=== PATIENT | female | born 1940 | race Caucasian/White ===

== ENCOUNTER 2016-05-04 17:35 | Inpatient (IN) | payer MEDICARE ==
[~2016-05-04] VITALS: Ht 160 cm; Wt 61.2 kg
[2016-05-04 21:36] VITALS: BP_SYST 133; RESP 20; TEMP 98.1
[2016-05-04 21:38] VITALS: Ht 160 cm; Wt 61.2 kg
[2016-05-04] MEDS ORDERED: SALINE FLUSH 10 ML FLUSH PRN (21:40)
[2016-05-04] MEDS ORDERED: ONDANSETRON 4 MG VIAL IV PRN (21:40)
[2016-05-04] MEDS ORDERED: PHARMACY TO DOSE VANCOMYCIN IV SCH (22:25)
[2016-05-04] MEDS ORDERED: SODIUM CHLORIDE 0.9% 1,000 ML IV SCH (22:30)
[2016-05-04] MEDS ORDERED: VANCOMYCIN 1,250 MG in SODIUM CHLORIDE 0.9% 250 ML IV ONE (22:40)
[2016-05-05] VITALS (9 sets, daily range): BP systolic 99–132; RESP 16–20; TEMP 97.2–98.1
[2016-05-05] MEDS: PIPERACIL/TAZO 3.375GM/50ML 50 ML IV SCH ×3 (00:55→11:04)
[2016-05-05] MEDS: METHYLPRED SOD SUCC 40 MG VIAL IV SCH ×3 (00:56→16:04)
[2016-05-05] MEDS: SODIUM CHLORIDE 0.9% FLUSH BAG 500 ML IV SCH (02:49)
[2016-05-05] MEDS: NEB-ATROVENT INH SCH ×6 (04:02→23:49)
[2016-05-05] MEDS: NEB-ALBUTEROL 2.5 MG/3 ML INH SCH ×6 (04:02→23:49)
[2016-05-05] MEDS: ASPIRIN 81 MG CHEW TAB PO SCH (08:32)
[2016-05-05] MEDS: ISOSORBIDE MONO 60 MG TAB PO SCH (08:32)
[2016-05-05] MEDS: APIXABAN 5 MG TAB PO SCH ×2 (08:32→20:47)
[2016-05-05] MEDS: GABAPENTIN 100 MG CAP PO SCH ×3 (08:33→20:47)
[2016-05-05] MEDS: SALINE FLUSH 10 ML FLUSH SCH ×2 (08:33→20:46)
[2016-05-05] MEDS: NORTRIPTYLINE 10 MG CAP PO SCH ×2 (08:33→20:47)
[2016-05-05] MEDS ORDERED: ENOXAPARIN 40 MG/0.4 ML SYR SUBQ SCH (09:00)
[2016-05-05] MEDS ORDERED: ACETAMINOPHEN 500 MG TAB PO PRN (10:30)
[2016-05-05] MEDS ORDERED: SODIUM CHLORIDE 0.9% 1,000 ML IV SCH (10:35)
[2016-05-05] MEDS: OXYCODONE 5 MG TAB PO PRN ×3 (11:06→23:02)
[2016-05-05] MEDS: DIGOXIN 0.125 MG TAB PO SCH (11:08)
[2016-05-05] MEDS ORDERED: PHARMACY TO DOSE CEFEPIME IV SCH (12:40)
[2016-05-05] MEDS: CEFEPIME 2000 MG/100 ML D5W 100 ML IV SCH ×2 (13:23→20:46)
[2016-05-05] MEDS: TOBRAMYCIN 300 MG INH SCH (17:05)
[2016-05-05] MEDS: NEB-BROVANA 15 MCG/2 ML INH SCH (17:05)
[2016-05-05] MEDS: NEB-NACL 3% 4 ML NEBU INH SCH ×2 (17:09→23:49)
[2016-05-05] MEDS: NEB-BUDESONIDE 0.5 MG INH SCH (17:09)
[2016-05-05] MEDS ORDERED: TOBRAMYCIN 300 MG INH SCH (19:00)
[2016-05-05] MEDS ORDERED: VANCOMYCIN 1,250 MG in SODIUM CHLORIDE 0.9% 250 ML IV SCH (23:00)
[2016-05-06] VITALS (10 sets, daily range): BP systolic 108–144; RESP 18–24; TEMP 97.3–98.2
[2016-05-06] MEDS: METHYLPRED SOD SUCC 40 MG VIAL IV SCH ×3 (00:12→15:25)
[2016-05-06] MEDS: SODIUM CHLORIDE 0.9% FLUSH BAG 500 ML IV SCH (06:00)
[2016-05-06] MEDS: NEB-NACL 3% 4 ML NEBU INH SCH ×4 (06:30→23:12)
[2016-05-06] MEDS: NEB-ATROVENT INH SCH ×2 (07:52→11:20)
[2016-05-06] MEDS: NEB-ALBUTEROL 2.5 MG/3 ML INH SCH ×5 (07:52→23:12)
[2016-05-06] MEDS: TOBRAMYCIN 300 MG INH SCH ×3 (07:53→18:45)
[2016-05-06] MEDS: NEB-BUDESONIDE 0.5 MG INH SCH (07:53)
[2016-05-06] MEDS: NEB-BROVANA 15 MCG/2 ML INH SCH ×2 (07:53→18:45)
[2016-05-06] MEDS: CEFEPIME 2000 MG/100 ML D5W 100 ML IV SCH ×2 (08:38→20:18)
[2016-05-06] MEDS: SALINE FLUSH 10 ML FLUSH SCH ×2 (08:38→20:18)
[2016-05-06] MEDS: ASPIRIN 81 MG CHEW TAB PO SCH (08:39)
[2016-05-06] MEDS: GABAPENTIN 100 MG CAP PO SCH ×3 (08:39→20:18)
[2016-05-06] MEDS: APIXABAN 5 MG TAB PO SCH ×2 (08:39→20:18)
[2016-05-06] MEDS: NORTRIPTYLINE 10 MG CAP PO SCH ×2 (08:39→20:18)
[2016-05-06] MEDS: ISOSORBIDE MONO 60 MG TAB PO SCH (08:39)
[2016-05-06] MEDS: DIGOXIN 0.125 MG TAB PO SCH (12:40)
[2016-05-07] VITALS (13 sets, daily range): BP systolic 131–152; RESP 16–20; TEMP 97.3–97.8
[2016-05-07] MEDS: SODIUM CHLORIDE 0.9% FLUSH BAG 500 ML IV SCH (05:37)
[2016-05-07] MEDS: TOBRAMYCIN 300 MG INH SCH ×2 (06:33→19:48)
[2016-05-07] MEDS: NEB-ALBUTEROL 2.5 MG/3 ML INH SCH ×5 (06:33→23:13)
[2016-05-07] MEDS: NEB-NACL 3% 4 ML NEBU INH SCH ×4 (06:34→23:13)
[2016-05-07] MEDS: NEB-BROVANA 15 MCG/2 ML INH SCH ×2 (06:34→19:48)
[2016-05-07] MEDS: NEB-NACL 3% 4 ML NEBU INH ONE ×2 (06:34→06:38)
[2016-05-07] MEDS: SALINE FLUSH 10 ML FLUSH SCH ×2 (08:27→20:44)
[2016-05-07] MEDS: ISOSORBIDE MONO 60 MG TAB PO SCH (08:27)
[2016-05-07] MEDS: CEFEPIME 2000 MG/100 ML D5W 100 ML IV SCH ×2 (08:27→20:43)
[2016-05-07] MEDS: METHYLPRED SOD SUCC 40 MG VIAL IV SCH ×4 (08:28→23:19)
[2016-05-07] MEDS: ASPIRIN 81 MG CHEW TAB PO SCH (08:28)
[2016-05-07] MEDS: GABAPENTIN 100 MG CAP PO SCH ×3 (08:28→20:43)
[2016-05-07] MEDS: APIXABAN 5 MG TAB PO SCH ×2 (08:28→20:43)
[2016-05-07] MEDS: NORTRIPTYLINE 10 MG CAP PO SCH ×2 (08:28→20:43)
[2016-05-07] MEDS: DIGOXIN 0.125 MG TAB PO SCH (12:18)
[2016-05-07] MEDS ORDERED: Furosemide 20 MG/2 ML VIAL IV ONE (12:55)
[2016-05-07] MEDS ORDERED: DEXTROSE 50% SYRINGE 50 ML IV PRN (13:10)
[2016-05-07] MEDS ORDERED: GLUCAGON 1 MG VIAL IM PRN (13:10)
[2016-05-07] MEDS ORDERED: DOCUSATE SOD 100 MG CAP PO PRN (15:15)
[2016-05-07] MEDS ORDERED: BISACODYL 10 MG SUPP RECTAL PRN (15:15)
[2016-05-07] MEDS ORDERED: BISACODYL EC 5 MG TAB PO PRN (15:15)
[2016-05-07] MEDS ORDERED: OXYCODONE 5 MG TAB PO PRN (16:22)
[2016-05-07] MEDS ORDERED: MISSING DOSE XX ONE (18:15)
[2016-05-08 03:32] VITALS: BP_SYST 149; TEMP 97.4
[2016-05-08 03:34] VITALS: RESP 20
[2016-05-08] MEDS: SODIUM CHLORIDE 0.9% FLUSH BAG 500 ML IV SCH (05:33)
[2016-05-08] MEDS: NEB-BROVANA 15 MCG/2 ML INH SCH (07:17)
[2016-05-08] MEDS: TOBRAMYCIN 300 MG INH SCH (07:17)
[2016-05-08] MEDS: NEB-ALBUTEROL 2.5 MG/3 ML INH SCH ×3 (07:17→15:17)
[2016-05-08] MEDS: NEB-NACL 3% 4 ML NEBU INH SCH ×2 (07:17→10:32)
[2016-05-08 07:26] VITALS: BP_SYST 155; RESP 20; TEMP 97.5
[2016-05-08] MEDS: APIXABAN 5 MG TAB PO SCH (10:01)
[2016-05-08] MEDS: ISOSORBIDE MONO 60 MG TAB PO SCH (10:01)
[2016-05-08] MEDS: NORTRIPTYLINE 10 MG CAP PO SCH (10:01)
[2016-05-08] MEDS: GABAPENTIN 100 MG CAP PO SCH ×2 (10:01→17:17)
[2016-05-08] MEDS: ASPIRIN 81 MG CHEW TAB PO SCH (10:01)
[2016-05-08] MEDS: SALINE FLUSH 10 ML FLUSH SCH (10:14)
[2016-05-08] MEDS: CEFEPIME 2000 MG/100 ML D5W 100 ML IV SCH (10:15)
[2016-05-08 11:03] VITALS: BP_SYST 145; RESP 18; TEMP 98.2
[2016-05-08] MEDS ORDERED: Furosemide 20 MG/2 ML VIAL IV ONE (11:40)
[2016-05-08] MEDS ORDERED: VALACYCLOVIR 500 MG TAB PO SCH ×2 (11:46→16:00)
[2016-05-08] MEDS ORDERED: CYANOCOBA 500 MCG TAB PO SCH (11:46)
[2016-05-08] MEDS: DIGOXIN 0.125 MG TAB PO SCH (11:58)
[2016-05-08] MEDS ORDERED: METHYLPRED SOD SUCC 125 MG/2 ML VIAL IV SCH (16:00)
[2016-05-08 16:35] VITALS: BP_SYST 132; RESP 20
[2016-05-08 17:30] VITALS: BP_SYST 132; RESP 20; TEMP 98.2
== END 2016-05-08 18:18 | DRG 189 ==
LOC: ENPENDDIS 21:16 → 3NT 21:16
PROVIDERS: ADMIT Internal Medicine; ATTEND Internal Medicine
DX: J96.21 Acute and chronic respiratory failure with hypoxia (principal); J47.1 Bronchiectasis with (acute) exacerbation; I50.32 Chronic diastolic (congestive) heart failure; E78.5 Hyperlipidemia, unspecified; B02.9 Zoster without complications; Z86.711 Personal history of pulmonary embolism; Z79.01 Long term (current) use of anticoagulants; Z99.81 Dependence on supplemental oxygen; Z95.0 Presence of cardiac pacemaker
CPT/HCPCS: 71020; 80048; 80053; 80162; 82607; 82746; 82947; 83036; 83735; 83880; 84484; 85025; 87040; 87278; 87299; 94640; 94667; 94668; 94799; 99223; 99232; 99233; 99239

== ENCOUNTER 2016-05-08 12:18 | Inpatient (IN) | payer MEDICARE ==
[~2016-05-08] VITALS: Ht 160 cm; Wt 66.1 kg
[2016-05-08] MEDS ORDERED: GLUCAGON 1 MG VIAL IM PRN (14:50)
[2016-05-08] MEDS ORDERED: PHARMACY TO DOSE CEFEPIME IV SCH (14:50)
[2016-05-08] MEDS ORDERED: POLYETHYLENE GLYCOL 17 GM PACKET PO PRN (14:50)
[2016-05-08] MEDS ORDERED: ACETAMINOPHEN 325 MG TAB PO PRN (14:50)
[2016-05-08] MEDS ORDERED: PNEUMO VAC 25 MCG/0.5 ML VL IM.VACC ONE (14:50)
[2016-05-08] MEDS ORDERED: DEXTROSE 50% SYRINGE 50 ML IV PRN (14:50)
[2016-05-08] MEDS: METHYLPRED SOD SUCC 40 MG VIAL IV SCH (16:00)
[2016-05-08] MEDS: VALACYCLOVIR 500 MG TAB PO SCH (16:00)
[2016-05-08] MEDS: GABAPENTIN 100 MG CAP PO SCH ×2 (16:00→22:32)
[2016-05-08] MEDS: NEB-NACL 3% 4 ML NEBU INH SCH ×2 (18:30→21:46)
[2016-05-08] MEDS: NEB-ALBUTEROL 2.5 MG/3 ML INH SCH ×2 (19:00→21:45)
[2016-05-08] MEDS ORDERED: TUBERCULIN PPD 5 UNIT SYR ID.VACC ONE (21:00)
[2016-05-08 21:46] VITALS: RESP 18
[2016-05-08] MEDS: TOBRAMYCIN 300 MG INH SCH (21:47)
[2016-05-08] MEDS: CEFEPIME 2000 MG/100 ML D5W 100 ML IV SCH (22:31)
[2016-05-08] MEDS: NORTRIPTYLINE 10 MG CAP PO SCH (22:31)
[2016-05-08] MEDS: APIXABAN 2.5 MG TAB PO SCH (22:32)
[2016-05-08 23:20] VITALS: BP_SYST 140; RESP 18; TEMP 97.3
[2016-05-09] VITALS: BMI 26.0
[2016-05-09] MEDS: VALACYCLOVIR 500 MG TAB PO SCH ×4 (00:30→23:30)
[2016-05-09] MEDS: METHYLPRED SOD SUCC 40 MG VIAL IV SCH ×4 (00:30→23:30)
[2016-05-09 05:33] VITALS: BP_SYST 136; RESP 18; TEMP 97.6
[2016-05-09] MEDS: SODIUM CHLORIDE 0.9% FLUSH BAG 500 ML IV SCH (06:38)
[2016-05-09] MEDS: NEB-NACL 3% 4 ML NEBU INH SCH ×3 (06:45→19:14)
[2016-05-09] MEDS: TOBRAMYCIN 300 MG INH SCH ×2 (06:45→19:14)
[2016-05-09] MEDS: NEB-ALBUTEROL 2.5 MG/3 ML INH SCH ×4 (06:45→19:16)
[2016-05-09 07:57] VITALS: BP_SYST 124; RESP 20; TEMP 96.3
[2016-05-09] MEDS: APIXABAN 2.5 MG TAB PO SCH ×2 (08:29→21:39)
[2016-05-09] MEDS: CYANOCOBA 500 MCG TAB PO SCH (08:29)
[2016-05-09] MEDS: NORTRIPTYLINE 10 MG CAP PO SCH ×2 (08:29→21:39)
[2016-05-09] MEDS: ISOSORBIDE MONO 60 MG TAB PO SCH (08:30)
[2016-05-09] MEDS: GABAPENTIN 100 MG CAP PO SCH ×3 (08:30→21:39)
[2016-05-09] MEDS: CEFEPIME 2000 MG/100 ML D5W 100 ML IV SCH ×2 (08:30→21:38)
[2016-05-09] MEDS: ASPIRIN 81 MG CHEW TAB PO SCH (08:30)
[2016-05-09] MEDS: DIGOXIN 0.125 MG TAB PO SCH (12:50)
[2016-05-09 14:28] VITALS: Ht 160 cm; Wt 66.1 kg
[2016-05-09] MEDS ORDERED: BISACODYL 10 MG SUPP RECTAL ONE (14:45)
[2016-05-09] MEDS: POLYETHYLENE GLYCOL 17 GM PACKET PO SCH ×2 (15:14→21:39)
[2016-05-09] MEDS ORDERED: Furosemide 20 MG/2 ML VIAL IV ONE (15:30)
[2016-05-09] MEDS ORDERED: Furosemide 40 MG/4 ML VIAL ONE (15:49)
[2016-05-09 23:30] VITALS: BP_SYST 150; RESP 18; TEMP 97.1
[2016-05-10] MEDS: NEB-ALBUTEROL 2.5 MG/3 ML INH SCH ×3 (00:01→18:41)
[2016-05-10] MEDS: NEB-NACL 3% 4 ML NEBU INH SCH ×5 (00:01→23:31)
[2016-05-10] MEDS: SODIUM CHLORIDE 0.9% FLUSH BAG 500 ML IV SCH (05:58)
[2016-05-10] MEDS: TOBRAMYCIN 300 MG INH SCH ×2 (06:45→18:42)
[2016-05-10] MEDS: METHYLPRED SOD SUCC 40 MG VIAL IV SCH ×3 (08:56→23:19)
[2016-05-10] MEDS: GABAPENTIN 100 MG CAP PO SCH ×3 (08:57→20:26)
[2016-05-10] MEDS: NORTRIPTYLINE 10 MG CAP PO SCH ×2 (08:57→20:26)
[2016-05-10] MEDS: POLYETHYLENE GLYCOL 17 GM PACKET PO SCH ×2 (08:57→20:26)
[2016-05-10] MEDS: VALACYCLOVIR 500 MG TAB PO SCH ×3 (08:57→23:19)
[2016-05-10] MEDS: APIXABAN 2.5 MG TAB PO SCH ×2 (08:57→20:26)
[2016-05-10] MEDS: ISOSORBIDE MONO 60 MG TAB PO SCH (08:57)
[2016-05-10] MEDS: CYANOCOBA 500 MCG TAB PO SCH (08:58)
[2016-05-10] MEDS: CEFEPIME 2000 MG/100 ML D5W 100 ML IV SCH ×2 (09:03→20:32)
[2016-05-10] MEDS: ASPIRIN 81 MG CHEW TAB PO SCH (09:03)
[2016-05-10 09:44] VITALS: BP_SYST 152
[2016-05-10 09:53] VITALS: BP_SYST 152
[2016-05-10] MEDS ORDERED: LORAZEPAM 0.5 MG TAB PO PRN (10:05)
[2016-05-10] MEDS ORDERED: NEB-ALBUTEROL 2.5 MG/3 ML INH ONE (10:25)
[2016-05-10 11:37] VITALS: BP_SYST 147
[2016-05-10] MEDS: OXYCODONE 5 MG TAB PO PRN ×2 (12:09→20:32)
[2016-05-10] MEDS ORDERED: NEB-ALBUTEROL 2.5 MG/3 ML INH SCH (12:30)
[2016-05-10] MEDS ORDERED: FLEET ENEMA 132 ML BTL RECTAL ONE ×2 (15:22→15:25)
[2016-05-10] MEDS ORDERED: FLEET ENEMA 132 ML BTL RECTAL PRN (15:25)
[2016-05-10] MEDS ORDERED: MAG CIT SOLN 300 ML PO ONE (17:35)
[2016-05-10] MEDS: DIGOXIN 0.125 MG TAB PO SCH (17:37)
[2016-05-10] MEDS ORDERED: SALINE FLUSH 10 ML FLUSH PRN (17:40)
[2016-05-10 18:17] VITALS: BP_SYST 148; RESP 18; TEMP 97.3
[2016-05-10] MEDS: SALINE FLUSH 10 ML FLUSH SCH (20:26)
[2016-05-10] MEDS ORDERED: SKIN TEST: READ AND RECORD XX SCH (21:00)
[2016-05-11 00:12] VITALS: BP_SYST 160; RESP 20; TEMP 97
[2016-05-11] MEDS: SODIUM CHLORIDE 0.9% FLUSH BAG 500 ML IV SCH ×2 (05:16→05:18)
[2016-05-11] MEDS: TOBRAMYCIN 300 MG INH SCH ×2 (07:16→18:37)
[2016-05-11] MEDS: NEB-NACL 3% 4 ML NEBU INH SCH ×4 (07:16→23:32)
[2016-05-11] MEDS: NEB-ALBUTEROL 2.5 MG/3 ML INH SCH ×3 (07:16→18:36)
[2016-05-11] MEDS: POLYETHYLENE GLYCOL 17 GM PACKET PO SCH ×3 (09:00→21:00)
[2016-05-11] MEDS ORDERED: Furosemide 40 MG TAB PO SCH (09:00)
[2016-05-11] MEDS: CEFEPIME 2000 MG/100 ML D5W 100 ML IV SCH ×2 (09:55→20:31)
[2016-05-11] MEDS: SALINE FLUSH 10 ML FLUSH SCH ×2 (10:00→20:30)
[2016-05-11] MEDS: METHYLPRED SOD SUCC 40 MG VIAL IV SCH ×2 (10:01→17:56)
[2016-05-11] MEDS: VALACYCLOVIR 500 MG TAB PO SCH ×2 (10:03→17:56)
[2016-05-11] MEDS: APIXABAN 2.5 MG TAB PO SCH ×2 (10:05→20:30)
[2016-05-11] MEDS: GABAPENTIN 100 MG CAP PO SCH ×3 (10:06→20:30)
[2016-05-11] MEDS: ASPIRIN 81 MG CHEW TAB PO SCH (10:06)
[2016-05-11] MEDS: NORTRIPTYLINE 10 MG CAP PO SCH ×2 (10:06→20:30)
[2016-05-11] MEDS: CYANOCOBA 500 MCG TAB PO SCH (10:07)
[2016-05-11] MEDS: ISOSORBIDE MONO 60 MG TAB PO SCH (10:08)
[2016-05-11] MEDS: DIGOXIN 0.125 MG TAB PO SCH (12:33)
[2016-05-11 13:54] VITALS: BP_SYST 154; RESP 18; TEMP 97.2
[2016-05-11 15:42] VITALS: BP_SYST 140; RESP 20; TEMP 97.6
[2016-05-11] MEDS: BISACODYL 10 MG SUPP RECTAL PRN (17:15)
[2016-05-12] MEDS: METHYLPRED SOD SUCC 40 MG VIAL IV SCH (01:09)
[2016-05-12] MEDS: VALACYCLOVIR 500 MG TAB PO SCH ×4 (01:09→23:15)
[2016-05-12 02:00] VITALS: BP_SYST 146; RESP 18; TEMP 97
[2016-05-12] MEDS: NEB-NACL 3% 4 ML NEBU INH SCH ×3 (05:19→19:04)
[2016-05-12] MEDS: NEB-ALBUTEROL 2.5 MG/3 ML INH SCH ×3 (05:19→19:04)
[2016-05-12] MEDS: TOBRAMYCIN 300 MG INH SCH ×2 (05:19→19:04)
[2016-05-12] MEDS: SODIUM CHLORIDE 0.9% FLUSH BAG 500 ML IV SCH ×2 (06:00→06:25)
[2016-05-12] MEDS: SALINE FLUSH 10 ML FLUSH SCH ×2 (08:42→21:00)
[2016-05-12] MEDS: CEFEPIME 2000 MG/100 ML D5W 100 ML IV SCH ×2 (08:48→21:00)
[2016-05-12] MEDS: NORTRIPTYLINE 10 MG CAP PO SCH ×2 (08:48→21:01)
[2016-05-12] MEDS: ISOSORBIDE MONO 60 MG TAB PO SCH (08:49)
[2016-05-12] MEDS: GABAPENTIN 100 MG CAP PO SCH ×3 (08:49→21:01)
[2016-05-12] MEDS: APIXABAN 2.5 MG TAB PO SCH ×2 (08:53→21:01)
[2016-05-12] MEDS: CYANOCOBA 500 MCG TAB PO SCH (08:54)
[2016-05-12] MEDS: POLYETHYLENE GLYCOL 17 GM PACKET PO SCH ×2 (08:54→21:01)
[2016-05-12] MEDS: ASPIRIN 81 MG CHEW TAB PO SCH (08:55)
[2016-05-12] MEDS ORDERED: DOCUSATE SOD 100 MG CAP PO SCH (09:00)
[2016-05-12 10:29] VITALS: BP_SYST 148; RESP 22; TEMP 97.1
[2016-05-12] MEDS: PREDNISONE 20 MG TAB PO SCH (10:34)
[2016-05-12] MEDS: MAG HYDROX 30 ML UDC PO PRN (10:35)
[2016-05-12] MEDS ORDERED: MISSING DOSE XX ONE (12:15)
[2016-05-12] MEDS: DIGOXIN 0.125 MG TAB PO SCH (12:24)
[2016-05-12 14:52] VITALS: BP_SYST 124; RESP 20; TEMP 98.4
[2016-05-12] MEDS: BISACODYL 10 MG SUPP RECTAL PRN (15:36)
[2016-05-12] MEDS: DOCUSATE SOD 100 MG CAP PO SCH (21:01)
[2016-05-13] MEDS: NEB-NACL 3% 4 ML NEBU INH SCH ×5 (00:30→23:51)
[2016-05-13 04:18] VITALS: BP_SYST 140; RESP 20; TEMP 98
[2016-05-13] MEDS: SODIUM CHLORIDE 0.9% FLUSH BAG 500 ML IV SCH ×2 (06:00→06:08)
[2016-05-13] MEDS: TOBRAMYCIN 300 MG INH SCH ×2 (06:01→20:56)
[2016-05-13] MEDS: NEB-ALBUTEROL 2.5 MG/3 ML INH SCH ×4 (06:01→23:52)
[2016-05-13 07:23] VITALS: BP_SYST 140; RESP 20; TEMP 96.6
[2016-05-13] MEDS: SALINE FLUSH 10 ML FLUSH SCH ×2 (07:32→20:00)
[2016-05-13] MEDS: VALACYCLOVIR 500 MG TAB PO SCH ×2 (07:32→17:15)
[2016-05-13] MEDS: CEFEPIME 2000 MG/100 ML D5W 100 ML IV SCH ×2 (07:36→20:28)
[2016-05-13] MEDS: ASPIRIN 81 MG CHEW TAB PO SCH (08:42)
[2016-05-13] MEDS: APIXABAN 2.5 MG TAB PO SCH ×2 (08:42→20:28)
[2016-05-13] MEDS: NORTRIPTYLINE 10 MG CAP PO SCH ×2 (08:42→20:28)
[2016-05-13] MEDS: DOCUSATE SOD 100 MG CAP PO SCH ×2 (08:43→20:28)
[2016-05-13] MEDS: PREDNISONE 20 MG TAB PO SCH (08:43)
[2016-05-13] MEDS: ISOSORBIDE MONO 60 MG TAB PO SCH (08:43)
[2016-05-13] MEDS: CYANOCOBA 500 MCG TAB PO SCH (08:43)
[2016-05-13] MEDS: GABAPENTIN 100 MG CAP PO SCH ×3 (08:44→20:28)
[2016-05-13] MEDS: POLYETHYLENE GLYCOL 17 GM PACKET PO SCH ×2 (08:44→20:28)
[2016-05-13] MEDS: DIGOXIN 0.125 MG TAB PO SCH (11:34)
[2016-05-13 16:50] VITALS: BP_SYST 130; RESP 18; TEMP 98.1
[2016-05-13] MEDS: MAG HYDROX 30 ML UDC PO PRN (17:29)
[2016-05-14] VITALS: BP_SYST 140; RESP 18; TEMP 97.2
[2016-05-14] MEDS: VALACYCLOVIR 500 MG TAB PO SCH ×4 (00:05→17:08)
[2016-05-14] MEDS: SODIUM CHLORIDE 0.9% FLUSH BAG 500 ML IV SCH ×2 (06:00→06:11)
[2016-05-14] MEDS ORDERED: SODIUM CHLORIDE 0.9% FLUSH BAG 500 ML IV SCH (06:00)
[2016-05-14 07:32] VITALS: BP_SYST 136; RESP 20; TEMP 96.7
[2016-05-14] MEDS: TOBRAMYCIN 300 MG INH SCH ×2 (07:39→19:25)
[2016-05-14] MEDS: NEB-ALBUTEROL 2.5 MG/3 ML INH SCH ×4 (07:39→22:39)
[2016-05-14] MEDS: NEB-NACL 3% 4 ML NEBU INH SCH ×4 (07:39→22:39)
[2016-05-14] MEDS: CEFEPIME 2000 MG/100 ML D5W 100 ML IV SCH ×2 (09:15→20:20)
[2016-05-14] MEDS: ISOSORBIDE MONO 60 MG TAB PO SCH (09:19)
[2016-05-14] MEDS: APIXABAN 2.5 MG TAB PO SCH ×2 (09:19→20:21)
[2016-05-14] MEDS: GABAPENTIN 100 MG CAP PO SCH ×3 (09:20→20:21)
[2016-05-14] MEDS: NORTRIPTYLINE 10 MG CAP PO SCH ×2 (09:21→20:21)
[2016-05-14] MEDS: DOCUSATE SOD 100 MG CAP PO SCH ×2 (09:21→20:21)
[2016-05-14] MEDS: ASPIRIN 81 MG CHEW TAB PO SCH (09:21)
[2016-05-14] MEDS: CYANOCOBA 500 MCG TAB PO SCH (09:21)
[2016-05-14] MEDS: POLYETHYLENE GLYCOL 17 GM PACKET PO SCH ×2 (09:22→20:21)
[2016-05-14] MEDS: PREDNISONE 20 MG TAB PO SCH (09:22)
[2016-05-14] MEDS: DIGOXIN 0.125 MG TAB PO SCH (12:19)
[2016-05-14 16:46] VITALS: BP_SYST 142; RESP 18; TEMP 98.3
[2016-05-15] MEDS: SODIUM CHLORIDE 0.9% FLUSH BAG 500 ML IV SCH (05:51)
[2016-05-15 05:54] VITALS: BP_SYST 130; RESP 20; TEMP 97.8
[2016-05-15] MEDS: CEFEPIME 2000 MG/100 ML D5W 100 ML IV SCH (07:58)
[2016-05-15] MEDS: NEB-NACL 3% 4 ML NEBU INH SCH (08:03)
[2016-05-15] MEDS: NEB-ALBUTEROL 2.5 MG/3 ML INH SCH (08:03)
[2016-05-15] MEDS: TOBRAMYCIN 300 MG INH SCH (08:03)
[2016-05-15] MEDS: POLYETHYLENE GLYCOL 17 GM PACKET PO SCH (09:00)
[2016-05-15] MEDS: GABAPENTIN 100 MG CAP PO SCH (09:24)
[2016-05-15] MEDS: PREDNISONE 20 MG TAB PO SCH (09:24)
[2016-05-15] MEDS: VALACYCLOVIR 500 MG TAB PO SCH ×2 (09:24)
[2016-05-15] MEDS: CYANOCOBA 500 MCG TAB PO SCH (09:24)
[2016-05-15] MEDS: DOCUSATE SOD 100 MG CAP PO SCH (09:25)
[2016-05-15] MEDS: ASPIRIN 81 MG CHEW TAB PO SCH (09:25)
[2016-05-15] MEDS: NORTRIPTYLINE 10 MG CAP PO SCH (09:25)
[2016-05-15] MEDS: APIXABAN 2.5 MG TAB PO SCH (09:26)
[2016-05-15] MEDS: ISOSORBIDE MONO 60 MG TAB PO SCH (09:26)
[2016-05-15] MEDS: DIGOXIN 0.125 MG TAB PO SCH (09:27)
[2016-05-15 09:53] VITALS: BP_SYST 130; RESP 20; TEMP 97.8
[2016-05-15 10:15] VITALS: BP_SYST 154; RESP 20; TEMP 97.2
[2016-05-15] MEDS ORDERED: TUBERCULIN PPD 5 UNIT SYR ID.VACC ONE (21:00)
== END 2016-05-15 11:50 | disposition home health service (06) | DRG 555 ==
LOC: NF 18:29
PROVIDERS: ADMIT Family Medicine; ATTEND Family Medicine
DX: R26.2 Difficulty in walking, not elsewhere classified (principal); J96.21 Acute and chronic respiratory failure with hypoxia; J47.1 Bronchiectasis with (acute) exacerbation; I50.30 Unspecified diastolic (congestive) heart failure
CPT/HCPCS: 36415; 74020; 80048; 82553; 82947; 83880; 84484; 85025; 86580; 93005; 94640; 94664; 94799; 99223; 99232; 99306; 99309